=== PATIENT | female | born 1995 | race African-American/Black ===

== ENCOUNTER 2019-02-24 13:42 | Emergency (ER) | payer SELFPAY ==
[2019-02-24 14:24] LABS: Absolute Lymphocytes (CBC) 1.7 K/uL (0.7-4.9); Basophils % 0.8 % (0-1.3); Hematocrit 43.4 % (36.0-45.0); Lymphocytes % 27.5 % (15.3-44.8); MPV 8.8 fL (7.6-11.3); RBC Red Blood Cell Count 4.81 M/uL (3.86-4.86)
[2019-02-24 14:30] LABS: Protime INR 0.99
[2019-02-24 14:41] LABS: BUN Blood Urea Nitrogen 11 mg/dL (7-18); Bicarbonate 27 mmol/L (21-32); Glucose Level 84 mg/dL (74-106); Sodium Level 138 mmol/L (136-145)
--- NOTE | 2019-02-24 14:53 | RAD REPORT ---
EXAM DESCRIPTION: CT - Head Brain Wo Cont - 02/24/2019 2:47 pm CLINICAL HISTORY: Dizziness, right flank pain, weakness, syncope COMPARISON: None. TECHNIQUE: Axial 5 mm thick images of the head were obtained without IV contrast. All CT scans are performed using dose optimization technique as appropriate and may include automated exposure control or mA/KV adjustment according to patient size. FINDINGS: No intracranial hemorrhage, mass, edema or shift of mid-line structures. No acute infarcti on changes seen. No abnormal extra-axial fluid collections. Ventricles are normal. Mastoid air cells and visualized portions of the paranasal sinuses are clear. No acute bony findings. IMPRESSION: Negative non-contrast CT head examination.
--- NOTE | 2019-02-24 15:10 | ER ---
Nurse's Notes [facility] Name: Ladarius Bishop Age: 23 yrs Sex: Female : 1995 Arrival Date: 02/24/2019 Time: 13:43 Bed 24 Private MD: Diagnosis: Malaise and fatigue Presentation: 02/24 13:50 Presenting complaint: Dizziness today, right flank pain x 1 week. Denies fever or hb urinary s/s. Transition of care: patient was not received from another setting of care. 13:50 Method Of Arrival: Ambulatory hb 13:51 Onset of symptoms was February 24, 2019. Risk Assessment: Do you want to hurt yourself hb or someone else? Patient reports no desire to harm self or others. Initial Sepsis Screen: Does the patient meet any 2 criteria? No. Patient's initial sepsis screen is negative. Does the patient have a suspected source of infection? No. Patient's initial sepsis screen is negative. Care prior to arrival: None. 13:51 Acuity: EREN 3 hb Historical: - Allergies: 13:55 PENICILLINS; hb - Home Meds: 13:55 None [Active]; hb - PMHx: 13:55 None; hb - PSHx: 13:55 Kidney stents; hb - Immunization history:: Adult Immunizations up to date. - Social history:: Smoking status: Patient/guardian denies using tobacco. - Ebola Screening: : No symptoms or risks identified at this time. Screenin:18 Abuse screen: Denies threats or abuse. Denies injuries from another. Nutritional mg2 screening: No deficits noted. Tuberculosis screening: No symptoms or risk factors identified. Fall Risk IV access (20 points). Assessment: 14:18 General: Appears in no apparent distress. comfortable, Behavior is calm, cooperative. mg2 Pain: Complains of pain in right flank Pain does not radiate. Quality of pain is described as aching, Pain began gradually, Is intermittent. Neuro: Level of Consciousness is awake, alert, obeys commands, Oriented to person, place, time, situation, Reports weakness. Cardiovascular: Capillary refill < 3 seconds Patient's skin is warm and dry. Respiratory: Airway is patent Respiratory effort is even, unlabored, Respiratory pattern is regular, symmetrical. GI: No signs and/or symptoms were reported involving the gastrointestinal system. : No signs and/or symptoms were reported regarding the genitourinary system. EENT: No signs and/or symptoms were reported regarding the EENT system. Derm: Skin is intact, is healthy with good turgor, Skin is pink, warm \T\ dry. normal. Derm: Bruising that is dark purple, on right arm. Musculoskeletal: Circulation, motion, and sensation intact. Capillary refill < 3 seconds. 15:28 Reassessment: Patient appears in no apparent distress at this time. mg2 Vital Signs: 13:54 BP 137 / 67; Pulse 88; Resp 16; Temp 97.2; Pulse Ox 100% on R/A; Weight 72.57 kg; hb Height 5 ft. 3 in. (160.02 cm); Pain 8/10; 14:59 BP 123 / 82; Pulse 90; Resp 18; Pulse Ox 100% on R/A; mg2 13:54 Body Mass Index 28.34 (72.57 kg, 160.02 cm) hb ED Course: 13:43 Patient arrived in ED. as 13:55 Arm band placed on. hb 13:56 Triage completed. hb 13:59 Jaqui Cali FNP-C is [facility]. kb 13:59 Mychal Naik MD is Attending Physician. kb 14:05 Yosef Mello, TORO is Primary Nurse. mg2 14:16 No provider procedures requiring assistance completed. Inserted saline lock: 22 gauge mg2 in left hand, using aseptic technique. Blood collected. 14:20 Patient has correct armband on for positive identification. Bed in low position. Call mg2 light in reach. Side rails up X 1. Door closed. Warm blanket given. 14:47 CT Head Brain wo Cont In Process Unspecified. EDMS 15:28 IV discontinued, intact, bleeding controlled, No redness/swelling at site. Pressure mg2 dressing applied. Administered Medications: No medications were administered Outcome: 15:10 Discharge ordered by . kb 15:29 Discharged to home ambulatory. mg2 15:29 Condition: stable 15:29 Discharge instructions given to patient, Instructed on discharge instructions, follow up and referral plans. Demonstrated understanding of instructions, follow-up care. 15:29 Patient left the ED. mg2 Signatures: Dispatcher [employer] EDMS Jaqui Cali FNP-C FNP-Dori Morales Heather RN RN Yosef Mello, RN RN mg2
--- NOTE | 2019-02-24 15:11 | EDPHYS ---
Physician Documentation [facility] Name: Ladarius Bishop Age: 23 yrs Sex: Female : 1995 Arrival Date: 02/24/2019 Time: 13:43 Bed 24 Private MD: ED Physician Mychal Naik HPI: 02/24 15:07 This 23 yrs old Black Female presents to ER via Ambulatory with complaints of kb Lightheaded. 15:08 The patient presents with generalized weakness, fatigue. Onset: The symptoms/episode kb began/occurred today. Context: occurred at work, occurred while the patient was working. Modifying factors: The symptoms are alleviated by nothing, the symptoms are aggravated by nothing. Associated signs and symptoms: The patient has no apparent associated signs or symptoms. Severity of symptoms: At their worst the symptoms were moderate in the emergency department the symptoms are unchanged. Patient's baseline: Neuro: alert and fully oriented, Motor: no deficits, Ambulation: walks without assistance, Speech: normal. The patient has not experienced similar symptoms in the past. The patient has not recently seen a physician. Pt reports fatigue and weakness today. Also reports "easy bruising" for a few days. States "I noticed a bruise on my arm and my boyfriend noticed one on my back. We don't know how they got there.". Historical: - Allergies: 13:55 PENICILLINS; hb - Home Meds: 13:55 None [Active]; hb - PMHx: 13:55 None; hb - PSHx: 13:55 Kidney stents; hb - Immunization history:: Adult Immunizations up to date. - Social history:: Smoking status: Patient/guardian denies using tobacco. - Ebola Screening: : No symptoms or risks identified at this time. ROS: 15:06 Neck: Negative for injury, pain, and swelling, Cardiovascular: Negative for chest pain, kb palpitations, and edema, Respiratory: Negative for shortness of breath, cough, wheezing, and pleuritic chest pain, Abdomen/GI: Negative for abdominal pain, nausea, vomiting, diarrhea, and constipation, Back: Negative for injury and pain, : Negative for injury, bleeding, discharge, and swelling, MS/Extremity: Negative for injury and deformity, Skin: Negative for injury, rash, and discoloration. 15:06 Constitutional: Positive for fatigue. 15:06 Neuro: Positive for weakness. Exam: 15:07 Constitutional: This is a well developed, well nourished patient who is awake, alert, kb and in no acute distress. Head/Face: Normocephalic, atraumatic. ENT: Nares patent. No nasal discharge, no septal abnormalities noted. Tympanic membranes are normal and external auditory canals are clear. Oropharynx with no redness, swelling, or masses, exudates, or evidence of obstruction, uvula midline. Mucous membranes moist. Neck: Trachea midline, no thyromegaly or masses palpated, and no cervical lymphadenopathy. Supple, full range of motion without nuchal rigidity, or vertebral point tenderness. No Meningismus. Chest/axilla: Normal chest wall appearance and motion. Nontender with no deformity. No lesions are appreciated. Cardiovascular: Regular rate and rhythm with a normal S1 and S2. No gallops, murmurs, or rubs. Normal PMI, no JVD. No pulse deficits. Respiratory: Lungs have equal breath sounds bilaterally, clear to auscultation and percussion. No rales, rhonchi or wheezes noted. No increased work of breathing, no retractions or nasal flaring. Abdomen/GI: Soft, non-tender, with normal bowel sounds. No distension or tympany. No guarding or rebound. No evidence of tenderness throughout. Skin: Warm, dry with normal turgor. Normal color with no rashes, no lesions, and no evidence of cellulitis. MS/ Extremity: Pulses equal, no cyanosis. Neurovascular intact. Full, normal range of motion. Neuro: Awake and alert, GCS 15, oriented to person, place, time, and situation. Cranial nerves II-XII grossly intact. Motor strength 5/5 in all extremities. Sensory grossly intact. Cerebellar exam normal. Normal gait. Vital Signs: 13:54 BP 137 / 67; Pulse 88; Resp 16; Temp 97.2; Pulse Ox 100% on R/A; Weight 72.57 kg; hb Height 5 ft. 3 in. (160.02 cm); Pain 8/10; 14:59 BP 123 / 82; Pulse 90; Resp 18; Pulse Ox 100% on R/A; mg2 13:54 Body Mass Index 28.34 (72.57 kg, 160.02 cm) hb MDM: 13:59 Patient medically screened. kb 15:05 Data reviewed: vital signs, nurses notes. Data interpreted: Pulse oximetry: on room air kb is 100 %. Interpretation: normal. Counseling: I had a detailed discussion with the patient and/or guardian regarding: the historical points, exam findings, and any diagnostic results supporting the discharge/admit diagnosis, lab results, radiology results, the need for outpatient follow up, a family practitioner, to return to the emergency department if symptoms worsen or persist or if there are any questions or concerns that arise at home. 02/24 14:05 Order name: CBC with Diff; Complete Time: 14:29 kb 02/24 14:05 Order name: Basic Metabolic Panel; Complete Time: 14:41 kb 02/24 14:05 Order name: Protime (+inr); Complete Time: 14:34 kb 02/24 14:05 Order name: Ptt, Activated; Complete Time: 14:34 kb 02/24 14:28 Order name: Urine Microscopic Only em1 02/24 14:30 Order name: Urine Dipstick--Ancillary (enter results) em1 02/24 13:59 Order name: Urine Dipstick-Ancillary (obtain specimen); Complete Time: 14:33 kb 02/24 14:05 Order name: IV Start; Complete Time: 14:16 kb 02/24 14:07 Order name: CT Head Brain wo Cont; Complete Time: 14:58 kb 02/24 14:30 Order name: Urine --Ancillary (enter results) em1 Administered Medications: No medications were administered Disposition: 02/25 06:45 Co-signature as Attending Physician, Mychal Naik MD I agree with the assessment and kdr plan of care. Disposition: 02/24/19 15:10 Discharged to Home. Impression: Malaise and fatigue. - Condition is Stable. - Discharge Instructions: Fatigue. - Medication Reconciliation Form, Thank You Letter, Antibiotic Education, Prescription Opioid Use, Work release form form. - Follow up: Emergency Department; When: As needed; Reason: Worsening of condition. Follow up: Private Physician; When: 2 - 3 days; Reason: Recheck today's complaints, Continuance of care, Re-evaluation by your physician. Signatures: Dispatcher [employer] EDJaqui Cantu, ALTON-C ALTON-Mychal Lockwood MD MD kdr Baxter, Heather, TORO RN Yosef Mello, RN RN mg2 Corrections: (The following items were deleted from the chart) 02/24 15:29 15:10 02/24/2019 15:10 Discharged to Home. Impression: Malaise and fatigue. Condition mg2 is Stable. Forms are Medication Reconciliation Form, Thank You Letter, Antibiotic Education, Prescription Opioid Use. Follow up: Emergency Department; When: As needed; Reason: Worsening of condition. Follow up: Private Physician; When: 2 - 3 days; Reason: Recheck today's complaints, Continuance of care, Re-evaluation by your physician. kb
[2019-02-24 15:35] LABS: Urine Blood NEGATIVE (NEG); Urine Glucose NEGATIVE (NEG); Urine Protein NEGATIVE (NEG); Urine pH 6.5 (5.0-7.0)
[2019-02-24 15:36] VITALS: TEMP 97.2; O2SAT 100
[2019-02-24 15:37] VITALS: BP 123/82
[2019-02-24 16:00] LABS: Urine Bacteria >50 /HPF (<20); Urine Culture Reflex Order REFLEXED; Urine RBC <5 /HPF (NONE SEEN)
[2019-02-24 16:01] LABS: Urine Yeast PRESENT (NONE SEEN); Urine Yeast with Hyphae PRESENT
== END 2019-02-24 15:29 | disposition home or self-care (01) ==
LOC: ER 13:42
DX: R53.81 Other malaise (principal); R53.83 Other fatigue; Z88.0 Allergy status to penicillin
CPT/HCPCS: 36415; 70450; 80048; 81003; 81015; 81025; 85025; 85610; 85730; 87086; 87088; 99283